=== PATIENT | male | born 1950 | race Caucasian/White ===

== ENCOUNTER → 2017-06-11 | Outpatient (CLI) | payer OTHER ==
--- NOTE | 2017-06-11 17:58 | PCVCIMAG ---
APPROVED REPORT Exam: Stress Echocardiogram Indication: Fatigue, decreased exercise tolerance, hlp Patient Location: Echo lab Stress Nurse: Myrna Lane RN Status: routine Ht: 6 ft 0 in HR: 78 bpm BP: 124/70 mmHg Rhythm: NSR Procedure The patient underwent an Exercise Stress Test using the Kam Protocol. Blood pressure, heart rate, and EKG were monitored. An Echocardiogram was performed by manufacturing plant technician in four stages in quad fashion. At peak stress, four selected images were obtained and placed side by side with resting images for comparison. Stress Test Details Stress Test: Exercise stress testing was performed using a Kam protocol. HR Resting HR: 78 bpmMax Heart Rate (APMHR): 152 bpm Max HR Achieved: 162 bpmTarget HR (85% APMHR): 129 bpm % of APMHR: 106 Recovery HR: 92 bpm HR response to stress: Normal HR response to stress BP Resting BP: 124/70 mmHg Max BP: 176/80 mmHg Recovery BP: 176/80 mmHg ECG Resting ECG: Sinus Rhythm Stress ECG: Sinus Rhythm ST Change: Normal Arrhythmia: None Recovery ECG: Sinus Rhythm Recovery Arrhythmia: None Clinical Reason for Termination: Maximal effort Stress Symptoms: None Exercise duration: 9 min 40 sec Highest Stage Achieved: Stage 4: 4.2 mph at 16% grade. Exercise capacity: 12.3 METs Overall Exercise Capacity for Age: Good Pre-Stress Echo The resting Echocardiogram showed normal left ventricular contractility with an estimated Ejection Fraction of about >55%. Normal wall motion in all segments on baseline images. Post-Stress Echo The stress Echocardiogram showed normal left ventricular contractility with an estimated Ejection Fraction of about 65%. Normal augmentation of wall motion in all segments on post stress images. Clinical No clinical or ECG evidence for ischemia. Conclusion Clinical Response: Non-ischemic Exercise Capacity: Average Stress ECG Response: Non-ischemic Stress Echo Images: Non-ischemic The left ventricle is normal in size and wall thickness in both the rest and stress images. Other Information Study Quality: Adequate <Conclusion> The left ventricle is normal in size and wall thickness in both the rest and stress images.
== END | disposition home or self-care (01) ==
LOC: PCVCIMAG 11:08
PROVIDERS: ATTEND Internal Medicine Cardiovascular Disease
DX: E78.5 Hyperlipidemia, unspecified (principal); E87.8 Other disorders of electrolyte and fluid balance, not elsewhere classified; R53.83 Other fatigue
CPT/HCPCS: 93325; 93351

== ENCOUNTER → 2018-07-10 | Outpatient (CLI) | payer OTHER ==
--- NOTE | 2018-07-10 15:12 | PCVCIMAG ---
APPROVED REPORT Study performed: 07/10/2018 13:22:13 EXAM: Comprehensive 2D, Doppler, and color-flow Echocardiogram Patient Location: Echo lab Status: routine BSA: 2.33 HR: 73 bpmBP: 120/70 mmHg Rhythm: NSR Other Information Study Quality: Good Indications Limited echo for history of pulmonary emboli. 2D Dimensions LV Single Plane 4CH: 55.89 % Tricuspid Valve TR Peak Yousif.: 1.85 m/s TR Peak Gr.: 13.68 mmHg Left Ventricle LVEF is 60-65%. Right Ventricle The right ventricle structure and function is normal. Right ventricular systolic function is grossly normal. Tricuspid Valve Trace tricuspid regurgitation. <Conclusion> LVEF is 60-65%. The right ventricle structure and function is normal. Right ventricular systolic function is grossly normal. Trace tricuspid regurgitation.
== END | disposition home or self-care (01) ==
LOC: PCVCIMAG 13:25
PROVIDERS: ATTEND Internal Medicine Cardiovascular Disease
DX: Z86.711 Personal history of pulmonary embolism (principal)
CPT/HCPCS: 93308

== ENCOUNTER → 2018-08-06 | Outpatient (CLI) | payer OTHER ==
--- NOTE | 2018-08-06 11:40 | PCVCIMAG ---
EXAM: VENOUS DUPLEX RIGHT LOWER EXTREMITY INDICATION: Leg pain and swelling. FINDINGS: Right leg: No thrombus in the common femoral vein. 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 Mild nonocclusive thrombus in the distal main femoral vein, profunda femoral vein, and distal popliteal vein. Findings are similar to outside study from May 2018. Calf veins are unremarkable where seen. IMPRESSION: Mild nonocclusive thrombus distal right main femoral vein, right profunda femoral vein, and distal right popliteal vein. No change since May 2018. LOC:[id number]
== END | disposition home or self-care (01) ==
LOC: PCVCIMAG 09:40
PROVIDERS: ATTEND Internal Medicine Cardiovascular Disease
DX: I82.401 Acute embolism and thrombosis of unspecified deep veins of right lower extremity (principal); M79.89 Other specified soft tissue disorders
CPT/HCPCS: 93971

== ENCOUNTER → 2019-02-28 | Outpatient (CLI) | payer OTHER ==
--- NOTE | 2019-02-28 13:26 | PCVCIMAG ---
EXAM: VENOUS DUPLEX RIGHT LEG INDICATION: Leg pain and swelling. FINDINGS: Right leg: Small amount of scarring and wall thickening consistent with prior episode of deep venous thrombosis at the origin of the profunda femoral vein and main femoral vein and in the lower popliteal vein. Otherwise previous changes of deep venous thrombosis in the right lower extremity has resolved compared to July 2018 study. IMPRESSION: No evidence of acute or subacute deep venous thrombosis in the right lower extreme knee. Small amount of scarring/wall thickening origin right profunda femoral vein/right main femoral vein origin, and lower right popliteal vein. Otherwise previous nonocclusive thrombus seen on July 2018 study in the right leg has resolved. LOC:[id number]
== END | disposition home or self-care (01) ==
LOC: PCVCIMAG 10:50
PROVIDERS: ATTEND Internal Medicine Cardiovascular Disease
DX: I82.401 Acute embolism and thrombosis of unspecified deep veins of right lower extremity (principal); E78.00 Pure hypercholesterolemia, unspecified
CPT/HCPCS: 93971

== ENCOUNTER → 2019-06-04 | Outpatient (CLI) | payer OTHER ==
--- NOTE | 2019-06-04 17:30 | PCVCIMAG ---
APPROVED REPORT Study performed: 06/04/2019 15:07:33 Exam: Stress Echocardiogram Indication: Hyperlipidemia, Hypertension Patient Location: Echo lab Stress Nurse: Bridgette Thomas RN Status: routine Ht: 6 ft 0 in HR: 87 bpm BP: 114/70 mmHg Rhythm: NSR Medical History Medical History: Hyperlipidemia, Hyperlipidemia Procedure The patient underwent an Exercise Stress Test using the Kam Protocol. Blood pressure, heart rate, and EKG were monitored. An Echocardiogram was performed by dish technician in four stages in quad fashion. At peak stress, four selected images were obtained and placed side by side with resting images for comparison. Stress Test Details Stress Test: Exercise stress testing was performed using a Kam protocol. HR Resting HR: 87 bpmMax Heart Rate (APMHR): 150 bpm Max HR Achieved: 155 bpmTarget HR (85% APMHR): 127 bpm % of APMHR: 103 Recovery HR: 97 bpm HR response to stress: Normal HR response to stress BP Resting BP: 114/70 mmHg Max BP: 210/64 mmHg Recovery BP: 140/78 mmHg BP response to stress: Normal blood pressure response to stress. ECG Resting ECG: Sinus Rhythm Stress ECG: Sinus Rhythm Recovery ECG: Sinus Rhythm Clinical Reason for Termination: Maximal effort Exercise duration: 9 min sec Highest Stage Achieved: Stage 3: 3.4 mph at 14% grade. Exercise capacity: 10.10 METs Overall Exercise Capacity for Age: Good Pre-Stress Echo The resting Echocardiogram showed normal left ventricular contractility with an estimated Ejection Fraction of about 55-60%. Normal wall motion in all segments on baseline images. Post-Stress Echo The stress Echocardiogram showed normal left ventricular contractility with an estimated Ejection Fraction of about 60-65%. Clinical No clinical or ECG evidence for ischemia. Conclusion Clinical Response: Non-ischemic Exercise Capacity: Average Stress ECG Response: Non-ischemic Stress Echo Images: Non-ischemic The left ventricle is normal in size and wall thickness in both the rest and stress images. Trace mitral and trlscupid regurgitation. Other Information Study Quality: Adequate <Conclusion> The left ventricle is normal in size and wall thickness in both the rest and stress images. Trace mitral and trlscupid regurgitation.
== END | disposition home or self-care (01) ==
LOC: PCVCIMAG 14:34
PROVIDERS: ATTEND Internal Medicine Cardiovascular Disease
DX: I10 Essential (primary) hypertension (principal); E78.5 Hyperlipidemia, unspecified
CPT/HCPCS: 93325; 93351